=== PATIENT | male | born 1965 | race Two or more races ===

== ENCOUNTER 2018-09-29 19:25 | Emergency (ER) | payer BC, OTHER ==
[~2018-09-29] VITALS: Ht 170.2 cm; Wt 88.9 kg
[~2018-09-29 19:25] MED LIST: CIPR500T4 PO; HYDR-762 PO; TAMS-14 PO
[2018-09-29 19:28] VITALS: BP 176/88; PULSE 70; RESP 18; Ht 170.2 cm; Wt 88.9 kg
[2018-09-29] MEDS ORDERED: ACETAMINOPHEN 325 MG TAB PO ONE (22:00)
[2018-09-29] MEDS ORDERED: DIPHTH/TET/ACEL PERTUSS (ADULT) 0.5 ML VIAL IM* ONE (23:30)
[2018-09-30] MEDS ORDERED: BACITUD TOP (00:12)
[2018-09-30] MEDS ORDERED: CEPH-443 PO (00:12)
[2018-09-30] MEDS ORDERED: ACET500C5 PO (00:12)
--- NOTE | 2018-09-30 06:04 | ERD ---
ER Documentation Chief Complaint Chief Complaint wound check laceration left side of scalp x 6 days ago HPI 52-year-old male patient with no significant past medical history presents to the ED complaining of a wound check for a laceration on his scalp that started 6 days ago. Patient reports that he has a slight headache but denies any consciousness. Denies any fever, chills, nausea, vomiting, diarrhea, neck stiffness. She reports that he accidentally hit his head while he is tried to take out the trash, slid and hit his head and sustained a laceration, few days a go but now the laceration has healed. ROS All systems reviewed and are negative except as per history of present illness. Medications Home Meds Active Scripts Bacitracin* (Bacitracin Oint (UD)*) 1 Applic Oint, 1 APPLIC TOP ONCE, #14 PKT APPLY TO Prov:CHRYSTAL BENITO PA-C 09/30/18 Cephalexin* (Keflex*) 500 Mg Capsule, 500 MG PO QID for 7 Days, CAP Prov:CHRYSTAL BENITO PA-C 09/30/18 Acetaminophen* (Tylophen*) 500 Mg Capsule, 1 CAP PO Q6H PRN for PAIN AND OR ELEVATED TEMP, #20 CAP Prov:CHRYSTAL BENITO PA-C 09/30/18 Hydrocodone Bit-Acetaminophen* (Mendon*) 10-325 Mg Tablet, 1 TAB PO Q6 PRN for PAIN, #20 TAB Prov:YVONNE BRINK 04/03/15 Tamsulosin Hcl* (Flomax*) 0.4 Mg Cap.er.24h, 0.4 MG PO QPM, #10 CAP Prov:YVONNE BRINK 04/03/15 Ciprofloxacin Hcl* (Ciprofloxacin Hcl*) 500 Mg Tablet, 500 MG PO BID for 7 Days, TAB Prov:YVONNE BRINK. 04/03/15 Allergies Allergies: Coded Allergies: No Known Allergy (Unverified , 09/29/18) PMhx/Soc History of Surgery: Yes (shoulder sx, urethra sx) Anesthesia Reaction: No Hx Neurological Disorder: No Hx Respiratory Disorders: No Hx Cardiac Disorders: No Hx Psychiatric Problems: No Hx Miscellaneous Medical Probl: No Hx Alcohol Use: No Hx Substance Use: No Hx Tobacco Use: No Smoking Status: Never smoker Physical Exam Vitals Vital Signs Date Temp Pulse Resp B/P (MAP) Pulse Ox O2 O2 Flow FiO2 Time Delivery Rate 09/29/18 97.5 70 18 176/88 97 19:28 (117) Physical Exam Const: Zry-oci-enwrenrja, well-nourished. In no acute distress. Head: Atraumatic, normocephalic Eyes: Normal Conjunctiva without injection. No purulent discharge. PERRLA. EOMI ENT: Normal external ear. Ear canal without erythema. Tympanic membrane pearly garza without effusion or bulging. Nasal canal clear with normal turbinates. Moist oropharynx without tonsillar exudates. Non-erythematous pharynx. Uvula midline. No drooling. No trismus. Neck: No cervical midline tenderness. Full range of motion. No meningismus. No cervical lymphadenopathy. No JVD. Resp: Clear to auscultation bilaterally. No wheezing, rhonchi, rales, or crackles. No accessory muscle use. No retractions. Cardio: Regular rate and rhythm. No murmurs, rubs or gallops. Abd: Soft, non tender, non distended. Normal bowel sounds. No palpable masses. No rebound tenderness. No guarding. Negative McBurney's Point. Negative Charlton's Sign. Skin: Normal skin turgor. No petechiae or rashes Back: No midline tenderness. No CVA tenderness. Ext: No cyanosis, or edema. Distal pulses intact bilaterally. Neur: Awake and alert. Normal gait. Normal coordination. Cranial Nerves II- VII intact. Normal finger to nose. Muscle strength 5/5. Sensation intact. Psych: Normal Mood and Affect Results 24 hrs Current Medications Medications Dose Sig/Nadya Start Time Status Last (Trade) Ordered Route PRN Stop Time Admin Dose Reason Admin 650 mg ONCE ONCE 09/29/18 DC 09/29/18 Acetaminophen PO 22:00 09/29/18 21:52 (Tylenol 22:01 Tab) Diphtheria/ 0.5 ml ONCE ONCE 09/29/18 DC 09/29/18 Tetanus/Acell IM* 23:30 09/29/18 23:17 Pertussis 23:31 (Adacel) Procedures/MDM 52-year-old male patient with no significant past medical history presents to ED complaining of a head injury. Patient is afebrile and nontoxic-appearing. Patient not taking any blood thinners however is still having headache. CT of the brain without contrast ordered to further evaluate patient. She was given Tylenol here in the ED with improvement of his symptoms. AMENDMENT: 09/29/2018 11:48:57 PM Eric Caruso M.d There is an additional 2 mm subcutaneous density along the right parietal scalp, similar in appearance to the subcutaneous density previously described in the region of the left frontal scalp swelling. As such, the left frontal subcutaneous density could simply represent a calcification rather than a foreign body. No foreign body noted. Laceration is healed with secondary intention. No signs of dehiscence. Low suspicion for intracranial bleed, subarachnoid hemorrhage, meningitis, TIA, stroke, subdural hematoma, epidural hematoma, or other emergent conditions. Diagnosis: Scalp laceration, Head injury Discharge medications: Tylenol Follow up with primary care physician in 1-2 days. Instructed patient to return to the ED sooner for any worsening symptoms. Patient's questions were answered. Patient is hemodynamically stable. Patient understood and agreed with discharge plan. Patient discharged stable. Disclaimer: Inadvertent spelling and grammatical errors are likely due to EHR/dictation software use and do not reflect on the overall quality of patient care. Also, please note that the electronic time recorded on this note does not necessarily reflect the actual time of the patient encounter. Departure Diagnosis: Primary Impression: Scalp laceration Encounter type: initial encounter Qualified Codes: S01.01XA - Laceration without foreign body of scalp, initial encounter Additional Impression: Head injury Encounter type: initial encounter Qualified Codes: S09.90XA - Unspecified injury of head, initial encounter Condition: Stable Patient Instructions: Scalp Contusion, No Wake Up, Laceration, All Referrals: [facility] YOU HAVE RECEIVED A MEDICAL SCREENING EXAM AND THE RESULTS INDICATE THAT YOU DO NOT HAVE A CONDITION THAT REQUIRES URGENT TREATMENT IN THE EMERGENCY DEPARTMENT. FURTHER EVALUATION AND TREATMENT OF YOUR CONDITION CAN WAIT UNTIL YOU ARE SEEN IN YOUR DOCTORS OFFICE WITHIN THE NEXT 1-2 DAYS. IT IS YOUR RESPONSIBILITY TO MAKE AN APPOINTMENT FOR FOLOW-UP CARE. IF YOU HAVE A PRIMARY DOCTOR --you should call your primary doctor and schedule an appointment IF YOU DO NOT HAVE A PRIMARY DOCTOR YOU CAN CALL OUR PHYSICIAN REFERRAL HOTLINE AT IF YOU CAN NOT AFFORD TO SEE A PHYSICIAN YOU CAN CHOSE FROM THE FOLLOWING [facility] [address] [facility] [address] [facility] [address] [facility] [address] [facility] [address] [facility] [facility] [address] [facility]. [facility] YOU HAVE RECEIVED A MEDICAL SCREENING EXAM AND THE RESULTS INDICATE THAT YOU DO NOT HAVE A CONDITION THAT REQUIRES URGENT TREATMENT IN THE EMERGENCY DEPARTMENT. FURTHER EVALUATION AND TREATMENT OF YOUR CONDITION CAN WAIT UNTIL YOU ARE SEEN IN YOUR DOCTORS OFFICE WITHIN THE NEXT 1-2 DAYS. IT IS YOUR RESPONSIBILITY TO MAKE AN APPOINTMENT FOR FOLOW-UP CARE. IF YOU HAVE A PRIMARY DOCTOR --you should call your primary doctor and schedule and appointment IF YOU DO NOT HAVE A PRIMARY DOCTOR YOU CAN CALL OUR PHYSICIAN REFERRAL HOTLINE AT . IF YOU CAN NOT AFFORD TO SEE A PHYSICIAN YOU CAN CHOSE FROM THE FOLLOWING [facility], [facility]: [facility] [address] [place] [address] [facility] [address] [place] [address] [facility] [address] [place] [address] [facility] URGENT C[facility]/SPECIALTIES Additional Instructions: Call your primary care doctor TOMORROW for an appointment during the next 2-3 days.See the doctor sooner or return here if your condition worsens before your appointment time. Follow up in 2 days in your clinic for wound check. CHRYSTAL BENITO PA-C Sep 30, 2018 06:04
== END 2018-09-30 00:17 | disposition home or self-care (01) ==
LOC: FTE 19:25
DX: S01.01XA Laceration without foreign body of scalp, initial encounter (principal); W22.8XXA Striking against or struck by other objects, initial encounter; Y92.9 Unspecified place or not applicable
CPT/HCPCS: 70450; 90471; 90715; Z7502; Z7610